=== PATIENT | female | born 1950 | race Caucasian/White ===

== ENCOUNTER 2017-01-12 15:19 | Emergency (ER) | payer OTHER, BC ==
[2017-01-12 15:20] VITALS: BMI 33.3
[2017-01-12 15:23] VITALS: RESP 18; O2SAT 96
--- NOTE | 2017-01-12 15:27 | C.PDOC ---
History Of Present Illness SP TRIP AND FALL PURLER CO L HAND, WRIST/FOREARM AND L KNEE INJURY. PS TRIPPED OVER OBJECT WHILE WALKING LANDED ON L UE. CO PAIN TO AFFECTED AREA, WORSE W MOVEMENT. +AMBUL ON SCENE. DENIES HEAD INJURY, LOC OTHER ASSOC SX OR INJURY. R HANDED. EXAM MILD DIST NONTOXIC HEENT ATRAUM NECK AROM NONTEND EXT +L UE +GEN WELL, DIFFUSE TEND DORSAL HAND/WRIST. LIMITED ROM L WRIST. + SUPINATION WO DIFF. LIMITED FULL ROM L ELBOW NO GROSS TRAUMA. L KNEE AROM WO DIFF, NO SWELL OR TEND. SKIN +ABRASION L KNEE, <1 CM. NEURO INTACT REMAINDER NEG - HPI Time Seen by Provider: 01/12/17 15:22 Chief Complaint (Nursing): Trauma History Per: Patient History/Exam Limitations: no limitations Onset/Duration Of Symptoms: Sudden Onset (PURLER) Past Medical History Reviewed: Historical Data, Nursing Documentation, Vital Signs Vital Signs: Last Vital Signs Temp 97.5 F L 01/12/17 17:04 Pulse 62 01/12/17 17:04 Resp 18 01/12/17 17:04 BP 122/80 01/12/17 17:04 Pulse Ox 96 01/12/17 17:04 - Medical History PMH: Fractures (LEFT ANKLE), Gastritis, HTN, Hypothyroidism Surgical History: Endoscopy - [facility] Procedures INJECTION INTO BURSA (01/23/14) X-RAY NEC AND NOS (01/23/14) Family History: States: No Known Family Hx Review Of Systems Musculoskeletal: Positive for: Hand Pain (Left hand, left wrist/forearm), Other ((+) Left knee injury). Negative for: Back Pain Neurological: Negative for: Weakness, Numbness Physical Exam - Physical Exam Appears: Non-toxic, In Acute Distress (Mild) Skin: Warm, Dry, Other ((+) Abrasion to left knee, <1 cm.) Head: Atraumatic, Normacephalic Eye(s): bilateral: Normal Inspection, PERRL, EOMI Oral Mucosa: Moist Neck: Normal, Normal ROM, Supple Cardiovascular: Rhythm Regular, No Murmur Respiratory: Normal Breath Sounds, No Rales, No Rhonchi, No Stridor Extremity: No Calf Tenderness, Capillary Refill (<2 secs), Other (LUE - General well. Diffuse tenderness to thr dorsal hand/wrist. Limited ROM of left wrist. + Supination w/o difficulty. Limited full ROM of left elbow. No gross trauma. Left knee AROM w/o difficulty. No swelling. No tenderness) Neurological/Psych: Oriented x3, Normal Speech, Normal Motor, Normal Sensation ED Course And Treatment - Other Rad X-Ray - Left Elbow X-Ray: Viewed By Me, Read By Radiologist Interpretation: IMPRESSION: Unremarkable radiographs of the left elbow. X-Ray - Left Forearm X-Ray: Viewed By Me, Read By Radiologist Interpretation: IMPRESSION: Unremarkable radiographs of the left forearm. X-Ray - Left Wrist X-Ray: Viewed By Me, Read By Radiologist Interpretation: IMPRESSION: Joint effusion raises suspicion of occult distal radial fracture. No definite fracture identified. X-Ray - Left Hand X-Ray: Viewed By Me, Read By Radiologist Interpretation: IMPRESSION: No acute fracture. Osteoarthritis CMC 1 and DIP 5. X-Ray - Left Knee X-Ray: Viewed By Me, Read By Radiologist Interpretation: PROCEDURE: Left Knee Radiographs. HISTORY: Pain. COMPARISON : None. FINDINGS: BONES: Normal. No fracture. JOINTS: Patellofemoral osteoarthritis. No articular erosion. JOINT EFFUSION: None. OTHER FINDINGS: None. IMPRESSION: No acute fracture. Patellofemoral osteoarthritis. - CT Scan/US CT - Upper Extremity Other Rad Studies (CT/US): Read By Radiologist CT - Lower Extremity Other Rad Studies (CT/US): Read By Radiologist Progress - Re-Evaluation Re-evaluation Note: 01/12/17 15:15 D/W DR WILSON. WILL EVAL IN ER 01/12/17 16:16 D/W DR WILSON AWARE OF ER FINDINGS. REQUESTS CT WRIST AND KNEE, WILL FU REPORT IN OFFICE. SPLINT APPLIED BY DR WILSON - Data Reviewed Data Reviewed: Diagnostic imaging Medical Decision Making Medical Decision Making: PLAN: * CT - Upper Extremity, Lower Extremity * X-Ray - Left Elbow, Left Forearm, Left Wrist, Left Hand, Left Knee * Tylenol PO Disposition Counseled Patient/Family Regarding: Studies Performed, Diagnosis, Need For Followup - Disposition Referrals: YOUR,PMD [Other] Disposition: HOME/ ROUTINE Disposition Time: 17:07 Condition: IMPROVED Additional Instructions: TAKE MOTRIN/TYLENOL DIRECTED FOR PAIN, ICE TO AFFECTED AREA. FOLLOW UP YOUR ORTHOPEDIST Instructions: Contusion in Adults (ED), Knee Sprain (ED), Wrist Sprain (ED) Forms: [employer] (Setswana) - Clinical Impression Clinical Impression: Wrist sprain, Knee contusion - Scribe Statement The provider has reviewed the documentation as recorded by the Kayleenibciaran Wang Provider Attestation: All medical record entries made by the Kayleenibciaran were at my direction and personally dictated by me. I have reviewed the chart and agree that the record accurately reflects my personal performance of the history, physical exam, medical decision making, and the department course for this patient. I have also personally directed, reviewed, and agree with the discharge instructions and disposition.
--- NOTE | 2017-01-12 16:01 | RAD ---
PROCEDURE: Radiographs of the Left Forearm HISTORY: TRAUMA COMPARISON: None available. TECHNIQUE: Frontal and lateral views obtained. FINDINGS: BONES: No fracture or destructive lesion. JOINT SPACES: Unremarkable. OTHER FINDINGS: None. IMPRESSION: Unremarkable radiographs of the left forearm.
--- NOTE | 2017-01-12 16:01 | RAD ---
PROCEDURE: Left Knee Radiographs. HISTORY: Pain. COMPARISON: None. FINDINGS: BONES: Normal. No fracture. JOINTS: Patellofemoral osteoarthritis. No articular erosion. JOINT EFFUSION: None. OTHER FINDINGS: None. IMPRESSION: No acute fracture. Patellofemoral osteoarthritis.
--- NOTE | 2017-01-12 16:03 | RAD ---
PROCEDURE: Left Wrist Radiographs. HISTORY: TRAUMA COMPARISON: None. FINDINGS: BONES: No definite fracture. However, there is bowing of the pronator fat pad ventrally, raising suspicion of a cold distal radial fracture. There is an ill-defined longitudinal lucency extending to the articular surface which may represent a fracture. JOINTS: Osteoarthritis of CMC 1. SOFT TISSUES: Normal. OTHER FINDINGS: None. IMPRESSION: Joint effusion raises suspicion of occult distal radial fracture. No definite fracture identified.
--- NOTE | 2017-01-12 16:04 | RAD ---
PROCEDURE: Radiographs of the left elbow. HISTORY: TRAUMA COMPARISON: No prior. FINDINGS: BONES: Normal. No fracture. JOINTS: Normal. No osteoarthritis. SOFT TISSUES: Normal. JOINT EFFUSION: None. OTHER FINDINGS: None IMPRESSION: Unremarkable radiographs of the left elbow.
--- NOTE | 2017-01-12 16:08 | RAD ---
PROCEDURE: Left Hand Radiographs. HISTORY: TRAUMA COMPARISON: None. FINDINGS: BONES: Normal. No fracture. JOINTS: Osteoarthritis at CMC 1. Osteoarthritis at DIP 5. No articular erosions. SOFT TISSUES: Normal. OTHER FINDINGS: None. IMPRESSION: No acute fracture. Osteoarthritis CMC 1 and DIP 5.
[2017-01-12 17:05] VITALS: BP 122/80; PULSE 62; TEMP 97.5
[2017-01-12] MEDS ORDERED: Oxycodone/Acetaminophen 5/325 mg Tab PO STA (17:15)
[2017-01-12] MEDS ORDERED: Oxycodone/Acetaminophen 5/325 mg Tab ONE (17:23)
--- NOTE | 2017-01-12 18:20 | CT ---
PROCEDURE: CT of the Left Wrist, Forearm and Elbow without contrast. HISTORY: TRAUMA COMPARISON: None available. TECHNIQUE: Contiguous axial images of the left wrist forearm and elbow were obtained. Coronal and sagittal reformats were generated. Intravenous contrast was not administered measure as per referring request This CT exam was performed using one or more of the following dose reduction techniques: Automated exposure control, adjustment of the mA and/or kV according to patient size, and/or use of iterative reconstruction technique. FINDINGS: Study is grossly compromised due to inability of the patient to isolate her left arm through the bore of the CT system. Gross beam hardening artifacts are created by the patient's body as result as well as imaging the distal left upper extremity in and on oblique coronal plane in source images rather than transverse through in axial plane and in concert, these limit the interpretation severely. Consequently the images are sub diagnostic. LEFT WRIST AND FOREARM: Carpal bones are limited evaluation as discussed above but there is not felt to be a definitive fracture identified through anyone of them. There is no subluxation or dislocation either. No destructive bony lesion is encountered and the most suspicious findings seen in the prior radiographs from left wrist series performed 01/12/2017, potential longitudinal fracture through the distal left radius, is not identified in this examination which is more definitive than the evaluation of the carpal bones. The distal ulna appears intact as well. The remainder of the left forearm is intact as well. LEFT ELBOW: No fracture or suspicious lytic or blastic changes appreciated throughout the left elbow bony components. No subluxation or dislocation is appreciated. Local soft tissues appear diffusely unremarkable. IMPRESSION: Suboptimal CT examination through the left wrist, forearm and elbow however no definitive fracture is seen through the forearm and elbow and is not felt to present to the carpal bones as well. Note, evaluation of the carpal bones is limited an underlying fracture is difficult to completely exclude as well as at the distal ulna. The distal left radius in particular appears intact without fracture which is more certain than imaging through the carpal bones. The remainder of the radius and ulna are also intact.
--- NOTE | 2017-01-12 18:38 | CT ---
PROCEDURE: CT of the Left Knee without contrast. HISTORY: TRAUMA COMPARISON: None available. TECHNIQUE: Contiguous axial images of the left hip were obtained. Coronal and sagittal reformats were generated. This CT exam was performed using one or more of the following dose reduction techniques: Automated exposure control, adjustment of the mA and/or kV according to patient size, and/or use of iterative reconstruction technique. FINDINGS: No cortical disruption is appreciated to suggest fracture of the distal femur or proximal tibia or fibula. There is no subluxation or dislocation either. No depression of the medial lateral tibial plateaus is appreciated and the patella appears normal in position and is intact as well. No destructive bony lesion is encountered. Joint space narrowing seen in all 3 compartments compatible with degenerative joint disease however an includes gross cortical sclerosis and limited osteophyte development. Limited medial soft tissue edema is appreciated. Mild medial lateral compartment joint effusions are identified with a limited suprapatellar bursa effusion evident as well. IMPRESSION: No fracture dislocation seen involving the left knee although relatively advanced degenerative joint disease changes are identified. Mild medial lateral femorotibial joint effusions are present as well as limited suprapatellar bursa effusion.
== END 2017-01-12 17:25 | disposition home or self-care (01) ==
LOC: C.ER 15:19
DX: S80.02XA Contusion of left knee, initial encounter (principal); S63.502A Unspecified sprain of left wrist, initial encounter; W18.00XA Striking against unspecified object with subsequent fall, initial encounter; Y93.01 Activity, walking, marching and hiking; I10 Essential (primary) hypertension; E03.9 Hypothyroidism, unspecified
CPT/HCPCS: 73080; 73090; 73110; 73130; 73200; 73562; 73700; 96372; 99284; J1885